=== PATIENT | female | born 1995 | race Caucasian/White ===

== ENCOUNTER 2017-05-16 12:14 | Emergency (ER) | payer OTHER, BC ==
[~2017-05-16] VITALS: Ht 160 cm; Wt 53.6 kg
[~2017-05-16 12:14] MED LIST: CEFU12SS; No Historical Meds; TAMIFLU; [UNRECOGNIZED DRUG - CODE]
[2017-05-16] MEDS ORDERED: MEDR1VL IM (12:21)
[2017-05-16] MEDS ORDERED: PROZ20CA11 PO (12:21)
[2017-05-16 15:59] LABS: BASO % 0.6 % (0.0-1.0); EOS # 0.1 K/mm3 (0.0-0.50); EOS % 0.8 % (0.0-3.0); LARGE UNSTAINED CELL # 0.1 K/mm3 (0.0-0.4); LYMPH # 1.8 K/mm3 (1.5-6.5); LYMPH % 18.8 % (24.0-44.0); MEAN CORPUSCULAR HEMOGLOBIN 29.6 pg (27.0-33.0); MONO # 0.5 K/mm3 (0.0-0.8); MONO % 5.3 % (0.0-5.0); NEUTROPHILS # 6.8 K/mm3 (1.8-7.7); NEUTROPHILS % 73.5 % (36.0-66.0); PLATELET COUNT, AUTOMATED 339 k/mm3 (150-450); RED CELL DISTRIBUTION WIDTH 12.5 % (11.5-14.5); WHITE BLOOD COUNT 9.2 K/mm3 (4.0-10.0)
--- NOTE | 2017-05-16 16:07 | REP ---
CT HEAD WITHOUT CONTRAST: HISTORY: Trauma. There is no intraparenchymal hemorrhage, mass or midline shift. The ventricular system is normal in appearance. There is no extracerebral collection. There is no fracture. The visualized sinuses are clear. IMPRESSION: There is no intracranial lesion. Signed by Moises De Leon MD 05/16/2017 04:11 P
--- NOTE | 2017-05-16 16:15 | REP ---
CT cervical spine without contrast HISTORY: Trauma COMPARISON: None There is no acute fracture or subluxation. There is no disc bulge or herniation. The spinal canal and neural foramina are patent. The intervertebral discs and vertebral bodies are normal in height. IMPRESSION: There is no acute fracture or subluxation. Signed by Moises De Leon MD 05/16/2017 04:07 P
[2017-05-16 16:19] LABS: ALBUMIN 4.6 GM/DL (3.2-5.2); ALBUMIN/GLOBULIN RATIO 1.64 (1.00-1.93); ALKALINE PHOSPHATASE 68 U/L (45-117); ALT/SGPT 16 U/L (12-78); ANION GAP 7 MEQ/L (8-16); AST/SGOT 14 U/L (15-37); BILIRUBIN,DIRECT 0.2 MG/DL (0.0-0.2); BILIRUBIN,TOTAL 0.7 MG/DL (0.2-1.0); BLOOD UREA NITROGEN 8 MG/DL (7-18); CALCIUM LEVEL 9.5 MG/DL (8.5-10.1); CARBON DIOXIDE LEVEL 28 MEQ/L (21-32); CHLORIDE LEVEL 107 MEQ/L (98-107); CREATININE FOR GFR 0.81 MG/DL (0.55-1.02); GLUCOSE, FASTING 104 MG/DL (70-105); POTASSIUM SERUM 4.1 MEQ/L (3.5-5.1); SODIUM LEVEL 142 MEQ/L (136-145); TOTAL PROTEIN 7.4 GM/DL (6.4-8.2)
[2017-05-16] MEDS ORDERED: CYCL5TAB PO (17:03)
[2017-05-16 17:10] VITALS: BP 168/80
== END 2017-05-16 17:22 | disposition home or self-care (01) ==
LOC: M ED 12:14
DX: M54.2 Cervicalgia (principal); V43.52XA Car driver injured in collision with other type car in traffic accident, initial encounter; Y92.9 Unspecified place or not applicable; Y93.9 Activity, unspecified; Y99.9 Unspecified external cause status; H91.8X9 Other specified hearing loss, unspecified ear; K42.9 Umbilical hernia without obstruction or gangrene; Z79.3 Long term (current) use of hormonal contraceptives; Z79.899 Other long term (current) drug therapy
CPT/HCPCS: 70450; 72125; 80048; 80076; 85025; 99282; G0480

== ENCOUNTER → 2018-08-24 | Outpatient (CLI) | payer BC ==
[2018-08-24 11:57] LABS: HEMATOCRIT 41.9 % (36.0-47.0); HEMOGLOBIN 14.1 g/dl (12.0-15.5); MEAN CORPUSCULAR HEMOGLOBIN 29.1 pg (27.0-33.0); MEAN CORPUSCULAR HGB CONC 33.7 g/dl (32.0-36.5); MEAN CORPUSCULAR VOLUME 86.6 fl (80.0-96.0); PLATELET COUNT, AUTOMATED 294 10^3/uL (150-450); RED BLOOD COUNT 4.84 10^6/uL (4.00-5.40); RED CELL DISTRIBUTION WIDTH 12.5 % (11.5-14.5); WHITE BLOOD COUNT 6.5 10^3/uL (4.0-10.0)
[2018-08-24 12:01] LABS: ALBUMIN 4.2 GM/DL (3.2-5.2); ALBUMIN/GLOBULIN RATIO 1.62 (1.00-1.93); ALKALINE PHOSPHATASE 53 U/L (45-117); ALT/SGPT 15 U/L (12-78); ANION GAP 7 MEQ/L (8-16); AST/SGOT 11 U/L (7-37); BILIRUBIN,TOTAL 0.6 MG/DL (0.2-1.0); BLOOD UREA NITROGEN 7 MG/DL (7-18); CARBON DIOXIDE LEVEL 28 MEQ/L (21-32); CHLORIDE LEVEL 107 MEQ/L (98-107); CHOLESTEROL LEVEL 184 MG/DL (<200); CHOLESTEROL RISK RATIO 2.705 (<5); CREATININE FOR GFR 0.91 MG/DL (0.55-1.30); FREE T4 1.11 NG/DL (0.76-1.46); GLOMERULAR FILTRATION RATE > 60.0 (>60); GLUCOSE, FASTING 94 MG/DL (70-100); HDL CHOLESTEROL 68 MG/DL (>40); LDL CHOLESTEROL 99 MG/DL (<100); NON-HDL-C 116 MG/DL; POTASSIUM SERUM 4.4 MEQ/L (3.5-5.1); SODIUM LEVEL 142 MEQ/L (136-145); TOTAL PROTEIN 6.8 GM/DL (6.4-8.2); TRIGLYCERIDES LEVEL 87 MG/DL (<150)
[2018-08-24 14:14] LABS: THYROID PEROXIDASE ANTIBODY 36.9 U/ML (<60.0)
== END ==
LOC: M LRY 08:50
DX: E04.0 Nontoxic diffuse goiter (principal)
CPT/HCPCS: 84443

== ENCOUNTER → 2018-08-26 | Outpatient (CLI) | payer BC | LOC: M RAD 12:18 | DX: Z13.29 Encounter for screening for other suspected endocrine disorder (principal) | CPT/HCPCS: 76536 ==

== ENCOUNTER 2019-01-21 10:18 | Emergency (ER) | payer BC ==
[~2019-01-21] VITALS: Ht 160 cm; Wt 62.5 kg
[~2019-01-21 10:18] MED LIST changes: +CYCL5TAB PO; +MEDR1VL IM; +PROZ20CA11 PO
[2019-01-21 11:12] LABS: HEMATOCRIT 42.5 % (36.0-47.0); HEMOGLOBIN 14.2 g/dl (12.0-15.5); MEAN CORPUSCULAR HEMOGLOBIN 29.6 pg (27.0-33.0); MEAN CORPUSCULAR HGB CONC 33.4 g/dl (32.0-36.5); MEAN CORPUSCULAR VOLUME 88.7 fl (80.0-96.0); PLATELET COUNT, AUTOMATED 279 10^3/uL (150-450); RED BLOOD COUNT 4.79 10^6/uL (4.00-5.40); WHITE BLOOD COUNT 7.9 10^3/uL (4.0-10.0)
[2019-01-21 11:35] LABS: AMPHETAMINES LEVEL URINE NEGATIVE (NEGATIVE); BARBITURATES URINE NEGATIVE (NEGATIVE); BENZODIAZEPINES URINE NEGATIVE (NEGATIVE); CANNABINOIDS URINE NEGATIVE (NEGATIVE); COCAINE METABOLITE URINE NEGATIVE (NEGATIVE); METHADONE URINE NEGATIVE (NEGATIVE); OPIATES URINE NEGATIVE (NEGATIVE); PHENCYCLIDINE URINE NEGATIVE (NEGATIVE)
[2019-01-21 11:35] LABS: HCG, SERUM QUALITATIVE NEGATIVE (NEGATIVE)
[2019-01-21 11:47] LABS: ACETAMINOPHEN LEVEL < 2.0 UG/ML (10.0-30.0); ALBUMIN 4.5 GM/DL (3.2-5.2); ALT/SGPT 15 U/L (12-78); BILIRUBIN,DIRECT 0.2 MG/DL (0.0-0.2); BILIRUBIN,TOTAL 0.7 MG/DL (0.2-1.0); BLOOD UREA NITROGEN 9 MG/DL (7-18); CARBON DIOXIDE LEVEL 29 MEQ/L (21-32); CHLORIDE LEVEL 107 MEQ/L (98-107); CREATININE FOR GFR 0.81 MG/DL (0.55-1.30); ETHYL ALCOHOL (ETHANOL) < 0.003 % (0.000-0.010); GLOMERULAR FILTRATION RATE > 60.0 (>60); GLUCOSE, FASTING 94 MG/DL (70-100); POTASSIUM SERUM 3.9 MEQ/L (3.5-5.1); SALICYLATE LEVEL < 1.7 MG/DL (5.0-30.0); SODIUM LEVEL 140 MEQ/L (136-145); TOTAL PROTEIN 7.1 GM/DL (6.4-8.2)
[2019-01-21 14:19] VITALS: BP 140/76
== END 2019-01-21 14:27 | disposition home or self-care (01) ==
LOC: M ED 10:18
DX: R45.89 Other symptoms and signs involving emotional state (principal); F32.9 Major depressive disorder, single episode, unspecified; F41.9 Anxiety disorder, unspecified; Z79.899 Other long term (current) drug therapy
CPT/HCPCS: 80048; 80076; 80307; 84443; 84703; 85027; 99284; G0480

== ENCOUNTER → 2019-03-23 | Outpatient (REF) | payer BC ==
[2019-03-23 12:16] LABS: HEMATOCRIT 43.7 % (36.0-47.0); HEMOGLOBIN 14.4 g/dl (12.0-15.5); MEAN CORPUSCULAR HEMOGLOBIN 29.7 pg (27.0-33.0); MEAN CORPUSCULAR VOLUME 90.1 fl (80.0-96.0); PLATELET COUNT, AUTOMATED 307 10^3/uL (150-450); RED BLOOD COUNT 4.85 10^6/uL (4.00-5.40); WHITE BLOOD COUNT 8.4 10^3/uL (4.0-10.0)
[2019-03-23 13:15] LABS: BLOOD UREA NITROGEN 7 MG/DL (7-18); CARBON DIOXIDE LEVEL 29 MEQ/L (21-32); CHLORIDE LEVEL 108 MEQ/L (98-107); CREATININE FOR GFR 0.73 MG/DL (0.55-1.30); GLOMERULAR FILTRATION RATE > 60.0 (>60); GLUCOSE, FASTING 84 MG/DL (70-100); POTASSIUM SERUM 4.6 MEQ/L (3.5-5.1); SODIUM LEVEL 144 MEQ/L (136-145)
== END ==
LOC: M SFHCCLAY 09:37
PROVIDERS: ATTEND Family Medicine
DX: G25.81 Restless legs syndrome (principal); R25.3 Fasciculation

== ENCOUNTER → 2019-04-27 | Outpatient (REF) | payer BC | LOC: M SFHCCLAY 13:30 | PROVIDERS: ATTEND Family Medicine | DX: Z12.4 Encounter for screening for malignant neoplasm of cervix (principal) ==

== ENCOUNTER → 2020-01-25 | Outpatient (CLI) | payer BC ==
--- NOTE | 2020-01-25 09:59 | REP ---
RIGHT FOREARM, AP AND LATERAL: There is no evidence of an acute fracture, dislocation or intrinsic bone disease. IMPRESSION: No fracture or dislocation. Electronically Signed by Beau Tolentino MD 01/25/2020 10:42 A
== END ==
LOC: M ADAMS 09:26
PROVIDERS: ATTEND Physician Assistant
DX: M79.631 Pain in right forearm (principal)

== ENCOUNTER → 2020-06-13 | Outpatient (CLI) | payer BC ==
--- NOTE | 2020-07-11 14:25 | REP ---
FIRST TRIMESTER OBSTETRICAL ULTRASOUND CLINICAL: Dating and viability. TECHNIQUE: Transabdominal first trimester obstetrical ultrasound with color Doppler evaluation. FINDINGS: Ultrasound examination demonstrates single live early intrauterine . pole measurements of 24 mm corresponds to 9 weeks 2 days gestational age with estimated date of delivery 01/14/2021. heart rate equals 172 beats per minute. No gross abnormalities are identified. Maternal ovaries are normal in appearance and vascularity. Left ovary measures 2.9 x 1.4 x 2.1 cm. Right ovary measures 3.7 x 3.0 x 2.1 cm and includes 3 cm corpus luteal cyst. IMPRESSION: Single live intrauterine at 9 weeks 2 days gestational age. Complete anatomical assessment should be performed at 19-20 weeks. MTDD
== END ==
LOC: M WHC 07:26
PROVIDERS: ATTEND Obstetrics & Gynecology
DX: O36.80X0 Pregnancy with inconclusive fetal viability, not applicable or unspecified (principal); Z3A.09 9 weeks gestation of pregnancy

== ENCOUNTER → 2020-08-28 | Outpatient (CLI) | payer BC ==
--- NOTE | 2020-08-28 08:51 | REP ---
INDICATION: ANATOMY COMPARISON: 06/13/2020 TECHNIQUE: Transabdominal obstetrical ultrasound with color Doppler evaluation. FINDINGS: Examination demonstrates a single live intrauterine in transverse (head to maternal right) presentation. motion is identified by technologist. Placenta is noted posterior and grade 0 without evidence for placenta previa or abruption. Amniotic fluid volume is normal. Cervix measures 3.1 cm in length and appears closed.. Gestational age by LMP 20 weeks 1 day with MIC 01/14/2021. Gestational age by current measurements 19 weeks 5 days with MIC 01/17/2021. FHR equals 143 beats per minute. BPD: 4.7 cm 20 weeks 1 day HC: 17.1 cm 19 weeks 5 days AC: 13.6 cm 19 weeks 0 days FL: 3.2 cm 19 weeks 6 days HL: 3.0 cm 20 weeks 0 days HC/AC: 1.26 Estimated weight 296 grams (17thpercentile). Anatomical assessment demonstrates normal structures including cranium, choroid plexus, cavum, cerebellum/posterior fossa, facial features, lungs, four-chamber heart/ventricular outflow tracts, diaphragm, stomach, cord insertion/three-vessel cord, kidneys/bladder, spine, and extremities. Echogenic focus within the cardiac ventricle suggesting prominent chordae tendineae. IMPRESSION: 1. Single live intrauterine in transverse lie demonstrating appropriate interval growth. 2. Echogenic focus in the cardiac ventricle. Otherwise normal anatomical assessment. <Electronically signed by Fredy Carr > 08/28/20 [id number]
== END ==
LOC: M WHC 06:37
PROVIDERS: ATTEND Advanced Practice Midwife
DX: Z34.01 Encounter for supervision of normal first pregnancy, first trimester (principal); Z3A.20 20 weeks gestation of pregnancy

== ENCOUNTER → 2020-12-19 | Outpatient (REF) | payer BC | LOC: M LAB REF 12:35 | PROVIDERS: ATTEND Advanced Practice Midwife | DX: Z34.03 Encounter for supervision of normal first pregnancy, third trimester (principal) ==

== ENCOUNTER → 2021-01-09 | Outpatient (CLI) | payer BC, OTHER ==
--- NOTE | 2021-01-09 09:21 | REP ---
INDICATION: UTERINE SIZE DATE DISCREPANCY,EFW,MARION,BPP COMPARISON: None. TECHNIQUE: Transabdominal obstetrical ultrasound with color Doppler evaluation. FINDINGS: Examination demonstrates a single live intrauterine in cephalic presentation. motion is identified by technologist. Placenta is noted posterior and grade 3 without evidence for placenta previa or abruption. Amniotic fluid volume is normal. Cervix measures 3.3 cm in length and appears closed. MARION: 22.6 cm (7.2-22.2) Biophysical profile score: 8/8 Umbilical artery SD ratio: 1.97 (1.50-3.27) Umbilical artery SD ratio: 2.31 (1.50-3.27). Gestational age by LMP 39 weeks 2 days with MIC 01/14/2021. Gestational age by current measurements 37 weeks 6 days with MIC 01/24/2021. FHR equals 136 beats per minute. Estimated weight 3632 grams (63rdpercentile). IMPRESSION: 1. Single live advanced gestation in cephalic presentation. Estimated weight is within normal range although biometric measurements measure age as less than expected. 2. Amniotic fluid volume is borderline polyhydramnios. 3. Biophysical profile score equals 8/8. <Electronically signed by Fredy Carr > 01/09/21 [id number]
== END ==
LOC: M WHC 08:32
PROVIDERS: ATTEND Advanced Practice Midwife
DX: Z36.89 Encounter for other specified antenatal screening (principal); Z3A.39 39 weeks gestation of pregnancy

== ENCOUNTER → 2021-03-30 | Outpatient (CLI) | payer BC, OTHER ==
[~2021-03-30] MED LIST changes: +FLUO40CA PO
== END ==
LOC: M OUTALCOH 07:49
PROVIDERS: ATTEND Psychiatry & Neurology Psychiatry
DX: F10.20 Alcohol dependence, uncomplicated (principal)

== ENCOUNTER → 2021-06-11 | Outpatient (CLI) | payer BC, OTHER | LOC: M OUTALCOH 08:15 | PROVIDERS: ATTEND Psychiatry & Neurology Psychiatry | DX: F10.20 Alcohol dependence, uncomplicated (principal) ==

== ENCOUNTER → 2021-07-12 | Outpatient (RCR) | payer BC, OTHER | LOC: M OUTALCOH 06-20 08:00 | PROVIDERS: ATTEND Psychiatry & Neurology Psychiatry | DX: F10.20 Alcohol dependence, uncomplicated (principal); F17.200 Nicotine dependence, unspecified, uncomplicated ==

== ENCOUNTER 2021-08-06 13:29 | Outpatient (RCR) | payer BC, OTHER | END 2021-08-12 | LOC: M OUTALCOH 13:29 | PROVIDERS: ATTEND Psychiatry & Neurology Psychiatry | DX: F10.20 Alcohol dependence, uncomplicated (principal); F17.200 Nicotine dependence, unspecified, uncomplicated ==

== ENCOUNTER 2021-09-10 14:00 | Outpatient (RCR) | payer BC, OTHER | END 2021-09-11 | LOC: M OUTALCOH 14:00 | PROVIDERS: ATTEND Psychiatry & Neurology Psychiatry | DX: F10.20 Alcohol dependence, uncomplicated (principal); F17.200 Nicotine dependence, unspecified, uncomplicated ==

== ENCOUNTER 2021-09-20 09:00 | Outpatient (RCR) | payer BC, OTHER | END 2021-10-12 | LOC: M OUTALCOH 09:00 | PROVIDERS: ATTEND Psychiatry & Neurology Psychiatry | DX: F10.20 Alcohol dependence, uncomplicated (principal); F17.200 Nicotine dependence, unspecified, uncomplicated ==

== ENCOUNTER 2021-11-29 17:21 | Inpatient (IN) | payer BC, OTHER ==
[~2021-11-29] VITALS: Ht 160 cm; Wt 55.1 kg
[2021-11-29] MEDS ORDERED: HYDR1CAP25 PO (17:32)
[2021-11-29] MEDS ORDERED: NALT50TA4 PO (17:32)
[2021-11-29 18:00] LABS: HEMATOCRIT 34.7 % (36.0-47.0); MEAN CORPUSCULAR HGB CONC 31.7 g/dl (32.0-36.5); MEAN CORPUSCULAR VOLUME 75.8 fl (80.0-96.0); PLATELET COUNT, AUTOMATED 363 10^3/uL (150-450); RED BLOOD COUNT 4.58 10^6/uL (4.00-5.40); WHITE BLOOD COUNT 8.5 10^3/uL (4.0-10.0)
[2021-11-29 18:32] LABS: ACETAMINOPHEN LEVEL < 2.0 UG/ML (10.0-30.0); ALBUMIN 4.2 GM/DL (3.2-5.2); ALT/SGPT 17 U/L (12-78); BILIRUBIN,DIRECT < 0.1 MG/DL (0.0-0.2); BILIRUBIN,TOTAL 0.2 MG/DL (0.2-1.0); BLOOD UREA NITROGEN 8 MG/DL (7-18); CALCIUM LEVEL 9.1 MG/DL (8.5-10.1); CARBON DIOXIDE LEVEL 27 MEQ/L (21-32); CHLORIDE LEVEL 109 MEQ/L (98-107); CREATININE FOR GFR 0.77 MG/DL (0.55-1.30); GLOMERULAR FILTRATION RATE > 60.0 (>60); GLUCOSE, FASTING 90 MG/DL (70-100); SALICYLATE LEVEL < 1.7 MG/DL (5.0-30.0); SODIUM LEVEL 145 MEQ/L (136-145); THYROID STIMULATING HORMONE 0.479 uIU/ML (0.358-3.740); TOTAL PROTEIN 7.3 GM/DL (6.4-8.2)
[2021-11-29 18:53] LABS: AMPHETAMINES LEVEL URINE NEGATIVE (NEGATIVE); BARBITURATES URINE NEGATIVE (NEGATIVE); BENZODIAZEPINES URINE NEGATIVE (NEGATIVE); CANNABINOIDS URINE NEGATIVE (NEGATIVE); COCAINE METABOLITE URINE NEGATIVE (NEGATIVE); METHADONE URINE NEGATIVE (NEGATIVE); OPIATES URINE NEGATIVE (NEGATIVE); PHENCYCLIDINE URINE NEGATIVE (NEGATIVE)
[2021-11-29] MEDS ORDERED: LORazepam 2 MG TAB PO PRN (18:55)
[2021-11-29 19:09] LABS: HCG, SERUM QUALITATIVE NEGATIVE (NEGATIVE); RSV AMPLIFICATION NEGATIVE (NEGATIVE)
[2021-11-29] MEDS ORDERED: THIAMINE 100 MG TAB PO SCH (21:00)
[2021-11-30] MEDS ORDERED: ACETAMINOPHEN TAB 650MG DOSE (2X325MG) PO PRN (06:00)
[2021-11-30] MEDS ORDERED: MOM 30ML SUSPENSION UDC PO PRN (06:00)
[2021-11-30] MEDS ORDERED: MAALOX 30 ML SUSP *UDC PO PRN (06:00)
[2021-11-30] MEDS ORDERED: LORazepam 2 MG TAB PO PRN (06:00)
[2021-11-30] MEDS ORDERED: traZODone 50 MG TAB PO PRN (06:00)
[2021-11-30] MEDS ORDERED: FLUO40CA PO (06:13)
[2021-11-30] MEDS ORDERED: HYDR-643 PO (06:13)
[2021-11-30] MEDS ORDERED: HOME MED LIST COMPLETE! XX SCH (06:15)
[2021-11-30] MEDS ORDERED: NALT50TA4 PO (06:15)
[2021-11-30] MEDS ORDERED: TRAZ-189 PO (06:15)
[2021-11-30] MEDS ORDERED: FOLIC ACID 1 MG TAB PO SCH (09:00)
[2021-11-30] MEDS ORDERED: MULTIVITAMINS/MINERALS THERAP 1 TAB PO SCH (09:00)
[2021-11-30] MEDS: THIAMINE 100 MG TAB PO SCH ×2 (09:51→21:25)
[2021-11-30] MEDS: MULTIVITAMINS/MINERALS THERAP 1 TAB PO SCH (09:52)
[2021-11-30] MEDS: FOLIC ACID 1 MG TAB PO SCH (09:52)
[2021-11-30] MEDS ORDERED: hydrOXYzine 25 MG TAB PO PRN (10:40)
[2021-11-30] MEDS: VENLAFAXINE **XR** 37.5 MG CAPSULE PO SCH (10:56)
[2021-11-30] MEDS: NALTREXONE 50 MG TAB PO SCH (10:56)
[2021-11-30 16:05] VITALS: BP 125/64
[2021-11-30] MEDS: PRAZOSIN 1 MG CAP PO SCH (21:26)
[2021-11-30 22:15] VITALS: BP 126/78
[2021-12-01 06:00] VITALS: BP 134/66
[2021-12-01 06:30] VITALS: BP 136/64
[2021-12-01] MEDS: MULTIVITAMINS/MINERALS THERAP 1 TAB PO SCH (08:15)
[2021-12-01] MEDS: THIAMINE 100 MG TAB PO SCH ×2 (08:16→20:43)
[2021-12-01] MEDS: VENLAFAXINE **XR** 37.5 MG CAPSULE PO SCH (08:16)
[2021-12-01] MEDS: FOLIC ACID 1 MG TAB PO SCH (08:16)
[2021-12-01] MEDS: NALTREXONE 50 MG TAB PO SCH (08:16)
[2021-12-01 14:00] VITALS: BP 144/87
[2021-12-01] MEDS: PRAZOSIN 1 MG CAP PO SCH (20:44)
[2021-12-01 21:27] VITALS: BP 158/96
[2021-12-02 06:34] VITALS: BP 155/77
[2021-12-02 06:45] VITALS: BP 155/77
[2021-12-02] MEDS: FOLIC ACID 1 MG TAB PO SCH (08:04)
[2021-12-02] MEDS: MULTIVITAMINS/MINERALS THERAP 1 TAB PO SCH (08:04)
[2021-12-02] MEDS: NALTREXONE 50 MG TAB PO SCH (08:04)
[2021-12-02] MEDS: THIAMINE 100 MG TAB PO SCH ×2 (08:04→20:11)
[2021-12-02] MEDS: VENLAFAXINE **XR** 37.5 MG CAPSULE PO SCH (08:04)
[2021-12-02] MEDS: FERROUS SULFATE 325MG TAB PO SCH (15:15)
[2021-12-02] MEDS: ASCORBIC ACID 250 MG TAB PO SCH (15:16)
[2021-12-02 16:14] VITALS: BP 136/74
[2021-12-02 16:23] LABS: BASO # 0.1 10^3/uL (0.0-0.2); BASO % 0.6 % (0.0-1.0); EOS # 0.1 10^3/uL (0.0-0.5); EOS % 0.8 % (0.0-3.0); HEMATOCRIT 36.8 % (36.0-47.0); HEMOGLOBIN 11.1 g/dl (12.0-15.5); MEAN CORPUSCULAR HEMOGLOBIN 23.2 pg (27.0-33.0); MEAN CORPUSCULAR HGB CONC 30.2 g/dl (32.0-36.5); MEAN CORPUSCULAR VOLUME 76.8 fl (80.0-96.0); MONO # 0.4 10^3/uL (0.0-0.8); MONO % 4.4 % (2.0-8.0); NEUTROPHILS # 7.3 10^3/uL (1.5-8.5); NEUTROPHILS % 73.7 % (36.0-66.0); PLATELET COUNT, AUTOMATED 460 10^3/uL (150-450); RED BLOOD COUNT 4.79 10^6/uL (4.00-5.40)
[2021-12-02 17:09] LABS: ALBUMIN 4.3 GM/DL (3.2-5.2); ALT/SGPT 16 U/L (12-78); BILIRUBIN,TOTAL 0.4 MG/DL (0.2-1.0); BLOOD UREA NITROGEN 7 MG/DL (7-18); CALCIUM LEVEL 9.1 MG/DL (8.5-10.1); CARBON DIOXIDE LEVEL 25 MEQ/L (21-32); CHLORIDE LEVEL 104 MEQ/L (98-107); CREATININE FOR GFR 0.77 MG/DL (0.55-1.30); FERRITIN 8 NG/ML (8-252); GLOMERULAR FILTRATION RATE > 60.0 (>60); GLUCOSE, FASTING 122 MG/DL (70-100); IRON (FE) 216 UG/DL (50-170); MAGNESIUM LEVEL 2.2 MG/DL (1.8-2.4); PERCENT SATURATION 41.8 % (13.2-45.0); SODIUM LEVEL 138 MEQ/L (136-145); TOTAL IRON BINDING CAPACITY 517 UG/DL (250-450); TOTAL PROTEIN 7.6 GM/DL (6.4-8.2)
[2021-12-02] MEDS: hydroCHLOROthiazide 12.5 MG CAPSULE PO SCH (18:01)
[2021-12-02 20:12] VITALS: BP 139/87
[2021-12-02] MEDS: PRAZOSIN 1 MG CAP PO SCH (20:12)
[2021-12-03 06:27] VITALS: BP 122/59
[2021-12-03] MEDS: ASCORBIC ACID 250 MG TAB PO SCH (09:53)
[2021-12-03] MEDS: MULTIVITAMINS/MINERALS THERAP 1 TAB PO SCH (09:53)
[2021-12-03] MEDS: NALTREXONE 50 MG TAB PO SCH (09:53)
[2021-12-03] MEDS: VENLAFAXINE **XR** 37.5 MG CAPSULE PO SCH (09:53)
[2021-12-03] MEDS: FOLIC ACID 1 MG TAB PO SCH (09:53)
[2021-12-03] MEDS: FERROUS SULFATE 325MG TAB PO SCH (09:53)
[2021-12-03] MEDS: hydroCHLOROthiazide 12.5 MG CAPSULE PO SCH (09:53)
[2021-12-03 12:04] LABS: VITAMIN B12 LEVEL 561 PG/ML (247-911)
[2021-12-03 12:05] LABS: FOLATE > 24.0 NG/ML (>5.4)
[2021-12-03] MEDS ORDERED: FERR1TAB8 PO (12:12)
[2021-12-03] MEDS ORDERED: HYDR12CA PO (12:12)
[2021-12-03] MEDS ORDERED: VENL37.598 PO (12:12)
[2021-12-03] MEDS ORDERED: NALT50TA4 PO (12:12)
[2021-12-03] MEDS ORDERED: MINI1CAP PO (12:12)
[2021-12-03] MEDS ORDERED: ASCO250T20 PO (12:26)
== END 2021-12-03 13:48 | disposition home or self-care (01) | DRG 751 ==
LOC: M ED 17:21 → M ED INP 17:22 → M PSY 11-30 08:20
PROVIDERS: ADMIT Student in an Organized Health Care Education/Training Program; ATTEND Student in an Organized Health Care Education/Training Program
DX: F33.1 Major depressive disorder, recurrent, moderate (principal); R45.851 Suicidal ideations; F10.10 Alcohol abuse, uncomplicated; I10 Essential (primary) hypertension; D50.9 Iron deficiency anemia, unspecified; F60.3 Borderline personality disorder; Z91.410 Personal history of adult physical and sexual abuse; Z79.899 Other long term (current) drug therapy

== ENCOUNTER 2022-04-02 20:33 | Inpatient (IN) | payer BC, OTHER, MEDICAID ==
[~2022-04-02] VITALS: Ht 160 cm; Wt 54.7 kg
[~2022-04-02 20:33] MED LIST changes: +ASCO250T20 PO; +FERR1TAB8 PO; +HYDR-643 PO; +HYDR12CA PO; +HYDR1CAP25 PO; +MINI1CAP PO; +NALT50TA4 PO; +TRAZ-189 PO; +VENL37.598 PO
[2022-04-02 21:07] LABS: HEMATOCRIT 37.5 % (36.0-47.0); MEAN CORPUSCULAR HEMOGLOBIN 26.3 pg (27.0-33.0); MEAN CORPUSCULAR VOLUME 82.1 fl (80.0-96.0); PLATELET COUNT, AUTOMATED 386 10^3/uL (150-450); RED BLOOD COUNT 4.57 10^6/uL (4.00-5.40); WHITE BLOOD COUNT 10.6 10^3/uL (4.0-10.0)
[2022-04-02 21:35] LABS: RSV AMPLIFICATION NEGATIVE (NEGATIVE)
[2022-04-02 21:36] LABS: ALT/SGPT 16 U/L (12-78); BILIRUBIN,DIRECT 0.2 MG/DL (0.0-0.2); BILIRUBIN,TOTAL 0.2 MG/DL (0.2-1.0); BLOOD UREA NITROGEN 5 MG/DL (7-18); CALCIUM LEVEL 8.2 MG/DL (8.5-10.1); CARBON DIOXIDE LEVEL 25 MEQ/L (21-32); CHLORIDE LEVEL 107 MEQ/L (98-107); CREATININE FOR GFR 0.88 MG/DL (0.55-1.30); ETHYL ALCOHOL (ETHANOL) 0.062 % (0.000-0.010); GLOMERULAR FILTRATION RATE > 60.0 (>60); GLUCOSE, FASTING 94 MG/DL (70-100); POTASSIUM SERUM 3.9 MEQ/L (3.5-5.1); SALICYLATE LEVEL < 1.7 MG/DL (5.0-30.0); SODIUM LEVEL 144 MEQ/L (136-145); THYROID STIMULATING HORMONE 0.479 uIU/ML (0.358-3.740)
[2022-04-02] MEDS ORDERED: NS 1,000 ML IV ONE (21:40)
[2022-04-02 21:54] LABS: HCG, SERUM QUALITATIVE NEGATIVE (NEGATIVE)
[2022-04-02 22:30] LABS: OSMOLALITY SERUM 338 MOSM/KG (275-295)
[2022-04-02] MEDS ORDERED: LORazepam 2 MG/ML VIAL IV STA (22:43)
[2022-04-02] MEDS ORDERED: LORazepam 2 MG/ML VIAL As Ordered ONE (22:45)
[2022-04-02] MEDS ORDERED: diphenhydrAMINE 50MG/ML VIAL (J1200) As Ordered ONE (22:48)
[2022-04-02] MEDS ORDERED: HALOPERIDOL 5MG/ML VIAL (J1630 PER 1) As Ordered ONE (22:48)
[2022-04-02] MEDS ORDERED: diphenhydrAMINE 50MG/ML VIAL (J1200) IM ONE (22:50)
[2022-04-02] MEDS ORDERED: HALOPERIDOL 5MG/ML VIAL (J1630 PER 1) IM ONE (22:50)
[2022-04-02] MEDS ORDERED: LORazepam 2 MG/ML VIAL IM ONE (22:50)
[2022-04-02 23:05] LABS: AMPHETAMINES LEVEL URINE NEGATIVE (NEGATIVE); BARBITURATES URINE NEGATIVE (NEGATIVE); BENZODIAZEPINES URINE NEGATIVE (NEGATIVE); CANNABINOIDS URINE NEGATIVE (NEGATIVE); COCAINE METABOLITE URINE NEGATIVE (NEGATIVE); METHADONE URINE NEGATIVE (NEGATIVE); OPIATES URINE NEGATIVE (NEGATIVE); PHENCYCLIDINE URINE NEGATIVE (NEGATIVE)
[2022-04-02 23:12] LABS: ACETAMINOPHEN LEVEL < 2.0 UG/ML (0.0-30.0)
[2022-04-03] MEDS ORDERED: LORazepam 2 MG TAB PO PRN ×2 (06:30→18:30)
[2022-04-03] MEDS ORDERED: FOLIC ACID 1 MG TAB PO SCH (09:00)
[2022-04-03] MEDS ORDERED: THIAMINE 100 MG TAB PO SCH (09:00)
[2022-04-03] MEDS ORDERED: MULTIVITAMINS/MINERALS THERAP 1 TAB PO SCH (09:00)
[2022-04-03] MEDS ORDERED: HOME MED LIST COMPLETE! XX SCH (10:05)
[2022-04-03] MEDS ORDERED: MOM 30ML SUSPENSION UDC PO PRN (18:30)
[2022-04-03] MEDS ORDERED: MAALOX 30 ML SUSP *UDC PO PRN (18:30)
[2022-04-03 21:02] VITALS: BP 129/72
[2022-04-03 21:04] VITALS: BP 129/72
[2022-04-03] MEDS: ACETAMINOPHEN TAB 650MG DOSE (2X325MG) PO PRN (21:24)
[2022-04-03] MEDS: THIAMINE 100 MG TAB PO SCH (21:24)
[2022-04-03 23:47] VITALS: BP 115/57
[2022-04-04 06:36] VITALS: BP 114/55
[2022-04-04] MEDS: THIAMINE 100 MG TAB PO SCH ×2 (08:52→20:52)
[2022-04-04] MEDS: MULTIVITAMINS/MINERALS THERAP 1 TAB PO SCH (08:52)
[2022-04-04] MEDS: FOLIC ACID 1 MG TAB PO SCH (08:52)
[2022-04-04] MEDS: VENLAFAXINE **XR** 37.5 MG CAPSULE PO SCH (13:17)
[2022-04-04] MEDS: NALTREXONE 50 MG TAB PO SCH (13:17)
[2022-04-04] MEDS: FERROUS SULFATE 325MG TAB PO SCH (13:17)
[2022-04-04 17:04] VITALS: BP 138/72
[2022-04-04] MEDS ORDERED: ONDANSETRON 4MG ORAL DISINTEGRATING TAB PO PRN (17:55)
[2022-04-04] MEDS: traZODone 50 MG TAB PO PRN (20:52)
[2022-04-04] MEDS: ACETAMINOPHEN TAB 650MG DOSE (2X325MG) PO PRN (20:52)
[2022-04-05 05:30] VITALS: BP 109/59
[2022-04-05 06:07] VITALS: BP 109/59
[2022-04-05] MEDS: MULTIVITAMINS/MINERALS THERAP 1 TAB PO SCH (09:00)
[2022-04-05] MEDS: VENLAFAXINE **XR** 37.5 MG CAPSULE PO SCH (09:18)
[2022-04-05] MEDS: FOLIC ACID 1 MG TAB PO SCH (09:18)
[2022-04-05] MEDS: THIAMINE 100 MG TAB PO SCH (09:18)
[2022-04-05] MEDS: FERROUS SULFATE 325MG TAB PO SCH (09:18)
[2022-04-05] MEDS: NALTREXONE 50 MG TAB PO SCH (09:18)
[2022-04-05] MEDS: ACETAMINOPHEN TAB 650MG DOSE (2X325MG) PO PRN (14:47)
[2022-04-05 16:49] VITALS: BP 134/71
[2022-04-05] MEDS: traZODone 50 MG TAB PO PRN (20:30)
[2022-04-06 06:00] VITALS: BP 133/80
[2022-04-06] MEDS: NALTREXONE 50 MG TAB PO SCH (08:00)
[2022-04-06] MEDS: VENLAFAXINE **XR** 37.5 MG CAPSULE PO SCH (08:00)
[2022-04-06] MEDS: FERROUS SULFATE 325MG TAB PO SCH (08:00)
[2022-04-06] MEDS: ACETAMINOPHEN TAB 650MG DOSE (2X325MG) PO PRN (16:04)
[2022-04-06 16:52] VITALS: BP 127/69
[2022-04-06] MEDS: traZODone 50 MG TAB PO PRN (20:04)
[2022-04-07 06:22] VITALS: BP 114/56
[2022-04-07] MEDS: FERROUS SULFATE 325MG TAB PO SCH (08:32)
[2022-04-07] MEDS: NALTREXONE 50 MG TAB PO SCH (08:33)
[2022-04-07] MEDS: VENLAFAXINE **XR** 37.5 MG CAPSULE PO SCH (08:33)
[2022-04-07] MEDS: ACETAMINOPHEN TAB 650MG DOSE (2X325MG) PO PRN (15:26)
[2022-04-07 16:11] VITALS: BP 140/66
[2022-04-07] MEDS: traZODone 50 MG TAB PO PRN (20:49)
[2022-04-08 07:10] VITALS: BP 124/77
[2022-04-08] MEDS ORDERED: NALT50TA4 PO (08:57)
[2022-04-08] MEDS ORDERED: VENL37.598 PO (08:57)
[2022-04-08] MEDS ORDERED: FERR1TAB8 PO (08:57)
[2022-04-08] MEDS ORDERED: TRAZ-252 PO (08:57)
[2022-04-08] MEDS: FERROUS SULFATE 325MG TAB PO SCH (09:00)
[2022-04-08] MEDS: VENLAFAXINE **XR** 37.5 MG CAPSULE PO SCH (09:05)
[2022-04-08] MEDS: NALTREXONE 50 MG TAB PO SCH (09:05)
== END 2022-04-08 12:39 | disposition home or self-care (01) | DRG 751 ==
LOC: M ED 20:33 → EDBD 20:33 → M ED INP 04-03 18:29 → M PSY 04-03 20:42
PROVIDERS: ADMIT Student in an Organized Health Care Education/Training Program; ATTEND Student in an Organized Health Care Education/Training Program
DX: F33.1 Major depressive disorder, recurrent, moderate (principal); R45.851 Suicidal ideations; Z91.14 Patient's other noncompliance with medication regimen; F10.10 Alcohol abuse, uncomplicated; F60.3 Borderline personality disorder; D50.9 Iron deficiency anemia, unspecified; F60.89 Other specific personality disorders; F43.10 Post-traumatic stress disorder, unspecified; F17.210 Nicotine dependence, cigarettes, uncomplicated

== ENCOUNTER → 2024-04-01 | Outpatient (REF) | payer OTHER, MEDICAID ==
[~2024-04-01] MED LIST changes: +TRAZ-252 PO
[2024-04-05 11:33] LABS: ANA SCREEN, IFA NEGATIVE (NEGATIVE)
== END ==
LOC: M LABWUC 16:22
PROVIDERS: ATTEND Physician Assistant
DX: R21 Rash and other nonspecific skin eruption (principal); R63.4 Abnormal weight loss

== ENCOUNTER → 2024-05-19 | Outpatient (REF) | payer OTHER ==
[2024-05-19 14:32] LABS: BASO # 0.1 10^3/uL (0.0-0.2); BASO % 0.3 % (0.0-1.0); EOS # 0.1 10^3/uL (0.0-0.5); EOS % 0.5 % (0.0-3.0); HEMATOCRIT 38.6 % (36.0-47.0); HEMOGLOBIN 11.7 g/dl (12.0-15.5); LYMPH # 1.5 10^3/uL (1.5-5.0); LYMPH % 6.2 % (24.0-44.0); MEAN CORPUSCULAR HEMOGLOBIN 24.1 pg (27.0-33.0); MEAN CORPUSCULAR HGB CONC 30.3 g/dl (32.0-36.5); MEAN CORPUSCULAR VOLUME 79.6 fl (80.0-96.0); MONO # 1.3 10^3/uL (0.0-0.8); MONO % 5.4 % (2.0-8.0); NEUTROPHILS # 20.5 10^3/uL (1.5-8.5); PLATELET COUNT, AUTOMATED 380 10^3/uL (150-450); RED BLOOD COUNT 4.85 10^6/uL (4.00-5.40); WHITE BLOOD COUNT 23.6 10^3/uL (4.0-10.0)
[2024-05-19 14:42] LABS: ALBUMIN 4.3 G/DL (3.2-5.2); ALKALINE PHOSPHATASE 59 U/L (46-116); ALT/SGPT 14 U/L (7.0-40); AST/SGOT < 8 U/L (<34); BILIRUBIN,TOTAL 0.6 MG/DL (0.3-1.2); BLOOD UREA NITROGEN 10 MG/DL (9-23); CALCIUM LEVEL 9.3 MG/DL (8.5-10.1); CARBON DIOXIDE LEVEL 28 MMOL/L (20-31); CHLORIDE LEVEL 105 MMOL/L (98-107); CREATININE FOR GFR 0.73 MG/DL (0.55-1.30); GLOMERULAR FILTRATION RATE > 60.0 (>60); GLUCOSE, FASTING 79 MG/DL (60-100); SODIUM LEVEL 137 MMOL/L (136-145); TOTAL PROTEIN 7.3 G/DL (5.7-8.2)
[2024-05-19 14:44] LABS: TOTAL 25(OH) VITAMIN D 29.1 NG/ML (20.0-100.0)
== END ==
LOC: M SFHCADAM 08:41
PROVIDERS: ATTEND Physician Assistant
DX: J06.9 Acute upper respiratory infection, unspecified (principal); F10.11 Alcohol abuse, in remission; E55.9 Vitamin D deficiency, unspecified

== ENCOUNTER → 2025-04-08 | Outpatient (REF) | payer OTHER ==
[~2025-04-08] MED LIST changes: -CYCL5TAB PO; +CYCL5TAB4 PO; +HYDR12.510 PO; -HYDR12CA PO; -PROZ20CA11 PO; +PROZ20CA12 PO
[2025-04-08 18:02] LABS: ALBUMIN 4.8 G/DL (3.2-5.2); ALKALINE PHOSPHATASE 50 U/L (35-104); ALT/SGPT 15 U/L (7.0-40); AST/SGOT 16 U/L (<34); BILIRUBIN,TOTAL 0.4 MG/DL (0.3-1.2); BLOOD UREA NITROGEN 5 MG/DL (9-23); CALCIUM LEVEL 9.7 MG/DL (8.5-10.1); CARBON DIOXIDE LEVEL 28 MMOL/L (20-31); CHLORIDE LEVEL 103 MMOL/L (98-107); CREATININE FOR GFR 0.62 MG/DL (0.55-1.30); GLOMERULAR FILTRATION RATE > 90.0 (>60); GLUCOSE, FASTING 85 MG/DL (60-100); SODIUM LEVEL 142 MMOL/L (136-145); TOTAL PROTEIN 7.8 G/DL (5.7-8.2)
[2025-04-08 18:04] LABS: FREE T4 1.33 NG/DL (0.89-1.76); THYROID STIMULATING HORMONE 0.756 uIU/ML (0.55-4.78)
[2025-04-08 18:12] LABS: HEPATITIS B SURFACE ANTIBODY NEGATIVE (POSITIVE)
[2025-04-08 18:23] LABS: HEMATOCRIT 39.1 % (36.0-47.0); HEMOGLOBIN 11.9 g/dl (12.0-15.5); HEPATITIS B SURFACE ANTIGEN NEGATIVE (NEGATIVE); MEAN CORPUSCULAR HEMOGLOBIN 25.9 pg (27.0-33.0); MEAN CORPUSCULAR HGB CONC 30.4 g/dl (32.0-36.5); MEAN CORPUSCULAR VOLUME 85.2 fl (80.0-96.0); PLATELET COUNT, AUTOMATED 458 10^3/uL (150-450); RED BLOOD COUNT 4.59 10^6/uL (4.00-5.40); WHITE BLOOD COUNT 8.1 10^3/uL (4.0-10.0)
[2025-04-08 18:36] LABS: HIV 1&2 SCREEN NEGATIVE (NEGATIVE)
[2025-04-08 18:44] LABS: HEPATITIS C VIRUS ABY INDEX 0.03 INDEX (<0.8)
[2025-04-08 19:12] LABS: Trichomonas vaginalis (AMP) NOT DETECTED (NEGATIVE)
[2025-04-08 19:35] LABS: GC DNA AMPLIFICATION NEGATIVE (NEGATIVE)
[2025-04-14 12:58] LABS: HPV APTIMA Not Detected (Not Detected)
== END ==
LOC: M SFHCADAM 14:36
PROVIDERS: ATTEND Physician Assistant
DX: Z12.4 Encounter for screening for malignant neoplasm of cervix (principal); N92.6 Irregular menstruation, unspecified; F10.11 Alcohol abuse, in remission; Z72.51 High risk heterosexual behavior; R87.615 Unsatisfactory cytologic smear of cervix; R87.610 Atypical squamous cells of undetermined significance on cytologic smear of cervix (ASC-US)